=== PATIENT | female | born 1970 | race Caucasian/White ===

== ENCOUNTER 2017-09-26 12:04 | Inpatient (IN) | payer OTHER ==
[~2017-09-26] VITALS: Ht 170.2 cm; Wt 88.5 kg
[2017-09-26 12:13] VITALS: Ht 170.2 cm; Wt 88.5 kg
[2017-09-26 12:49] LABS: BASOPHIL % 0.8 % (0-2); PLATELET COUNT 264 x10^3mcL (130-400); RED CELL DISTRIBUTION WIDTH 13.5 % (11.5-14.5)
[2017-09-26 12:50] LABS: CALCIUM 8.7 mg/dL (8.5-10.1); CARBON DIOXIDE 26.5 mmol/L (21-32); CHLORIDE SERUM 107 mmol/L (98-107); CREATININE SERUM 0.7 mg/dL (0.6-1.0); GFR1 > 60 mL/min; GLUCOSE SERUM 100 mg/dL (74-106); POTASSIUM SERUM 3.7 mmol/L (3.5-5.1); SODIUM SERUM 141 mmol/L (136-145)
[2017-09-26 12:55] LABS: ALBUMIN 3.5 g/dL (3.4-5.0); ALKALINE PHOSPHATASE 119 U/L (46-116); ALT/SGPT 21 U/L (14-59); AST/SGOT 18 U/L (15-37); BILIRUBIN TOTAL 0.44 mg/dL (0.20-1.00); TOTAL PROTEIN, SERUM 7.4 g/dL (6.4-8.2)
[2017-09-26 13:19] LABS: microscopic required? YES; urine erythrocyte TRACE (NEGATIVE)
[2017-09-26 15:07] VITALS: BP 140/69
[2017-09-26 15:21] LABS: CHOLESTEROL/HDL RATIO 4.3; MAGNESIUM 1.8 mg/dL (1.8-2.4); PHOSPHOROUS 2.4 mg/dL (2.5-4.9)
[2017-09-26 15:23] LABS: T3 TOTAL 0.98 ng/mL
[2017-09-26 15:53] LABS: FREE T4 0.84 ng/dL (0.76-1.46); FREE THYROXINE INDEX 1.7 ug/dL (1.4-4.5); T4(THYROXINE) 5.5 ug/dL (4.7-13.3)
[2017-09-26 16:38] LABS: AMPHETAMINE QUAL UR NONE DETECTED (See below)
[2017-09-26 20:15] VITALS: BP 131/69
[2017-09-27 05:19] VITALS: BP 121/64
[2017-09-27 06:45] LABS: BASOPHIL % 0.5 % (0-2); PLATELET COUNT 219 x10^3mcL (130-400); RED CELL DISTRIBUTION WIDTH 13.1 % (11.5-14.5)
[2017-09-27 06:57] LABS: CALCIUM 7.8 mg/dL (8.5-10.1); CARBON DIOXIDE 26.7 mmol/L (21-32); CHLORIDE SERUM 108 mmol/L (98-107); CREATININE SERUM 0.6 mg/dL (0.6-1.0); GFR1 > 60 mL/min; GLUCOSE SERUM 92 mg/dL (74-106); SODIUM SERUM 140 mmol/L (136-145)
[2017-09-27 09:54] VITALS: BP 126/69
[2017-09-27 13:25] VITALS: BP 131/71
[2017-09-27] MEDS ORDERED: MOT600 PO (13:36)
[2017-09-27 13:50] VITALS: BP 126/69
== END 2017-09-27 15:39 | disposition home or self-care (01) | DRG 203 ==
LOC: ED 12:04 → DU 13:44
PROVIDERS: Emergency Medicine; Family Medicine
DX: M94.0 Chondrocostal junction syndrome [Tietze] (principal); G90.8 Other disorders of autonomic nervous system; D35.2 Benign neoplasm of pituitary gland; E86.0 Dehydration; E66.9 Obesity, unspecified; I34.0 Nonrheumatic mitral (valve) insufficiency; Z68.30 Body mass index [BMI] 30.0-30.9, adult
CPT/HCPCS: 83880; 84439; 85378; J1885; J2405; J7030; J7040; Q0092